=== PATIENT | male | born 1945 | race Caucasian/White ===

== ENCOUNTER 2024-05-22 08:07 | Outpatient (CLI) | payer MEDICARE, BC ==
[2024-05-22] MEDS ORDERED: Iopamidol 300 61% 100 ML VIAL FS ONE (10:02)
== END 2024-05-22 08:08 | disposition home or self-care (01) ==
LOC: CSHCT 08:07
PROVIDERS: ATTEND Internal Medicine
DX: K62.89 Other specified diseases of anus and rectum (principal)
CPT/HCPCS: 36415; 74177; 82565

== ENCOUNTER 2024-06-28 12:25 | Outpatient (CLI) | payer MEDICARE, BC ==
[~2024-06-28 12:25] MED LIST: Magnevist 469MG/ML 20 ML VIAL ONE
== END 2024-06-28 12:26 | disposition home or self-care (01) ==
LOC: CSHMRI 12:25
PROVIDERS: ATTEND Surgery
DX: C20 Malignant neoplasm of rectum (principal)
CPT/HCPCS: 36415; 72197; 82565

== ENCOUNTER 2025-05-09 14:12 | Outpatient (CLI) | payer MEDICARE, BC | END 2025-05-09 14:13 | disposition home or self-care (01) | LOC: CSHMRI 14:12 | PROVIDERS: ATTEND Internal Medicine Hematology & Oncology | DX: C20 Malignant neoplasm of rectum (principal) | CPT/HCPCS: 72197 ==